=== PATIENT | male | born 1995 ===

== ENCOUNTER 2017-02-23 21:43 | Emergency (ER) | payer OTHER ==
--- NOTE | 2017-02-23 21:45 | ER Report ---
History and Physical Time Seen By MD: 21:44 HPI/ROS CHIEF COMPLAINT: Body fluid exposure HISTORY OF PRESENT ILLNESS: 21-year-old homosexual male presents to the ER concerned about exposure to HIV. He is a homosexual male who engaged in anal intercourse with HIV positive person. He is feeling regretful. He did not use any protection. He is concerned he may have contracted HIV. He would like post exposure prophylaxis. Allergies: Coded Allergies: No Known Drug Allergies (Unverified , 02/23/17) Home Meds Active Scripts Lamivudine/Zidovudine (COMBIVIR TABLET) 1 Each Tablet, 1 EACH PO BID for prevention of HIV conversion, #60 Prov:JANELLBEHZAD Reyes DO 02/23/17 Reviewed Nurses Notes: Yes Old Medical Records Reviewed: Yes Constitutional Vital Sign - Last 24 Hours 02/23/17 21:48 Temp 98.8 Pulse 109 Resp 18 B/P (MAP) 135/98 Pulse Ox 96 O2 Delivery Room Air Physical Exam General appearance: Alert no distress. Respiratory: Chest is non tender, lungs are clear to auscultation. Cardiac: Regular rate and rhythm Abdomen soft, nontender, bowel sounds intact DIFFERENTIAL DIAGNOSIS: After history and physical exam differential diagnosis was considered for body fluid exposure to HIV Medical Decision Making ED Course/Re-evaluation ED Course Patient was admitted to an examination room. H&P was done. The differential diagnoses was considered. Patient is asymptomatic. He will be covered with postexposure prophylaxis with Combivir Dillon. Prescription was provided. Patient advised to follow-up with primary care to assess his HIV status in 4 weeks. Decision to Disposition Date: Feb 23, 2017 Decision to Disposition Time: 22:21 Depart Departure Latest Vital Signs Vital Signs Date Time Temp Pulse Resp B/P (MAP) Pulse Ox O2 Delivery O2 Flow Rate FiO2 02/23/17 21:48 98.8 109 18 135/98 96 Room Air Impression: Primary Impression: Unprotected sexual intercourse Additional Impression: HIV exposure from body fluids Condition: Improved Disposition: HOME OR SELF-CARE Referrals: ANTHONY SARMIENTO MD New Scripts Lamivudine/Zidovudine (COMBIVIR TABLET) 1 Each Tablet 1 EACH PO BID for prevention of HIV conversion, #60 Prov: JANELLBEHZAD Reyes DO 02/23/17 Patient Instructions: HIV Transmission (ED) Additional Instructions: Follow-up with your primary care or the physician listed on your paperwork for follow-up within one week Problem Qualifiers BEHZAD MACIEL DO Feb 23, 2017 21:45
[2017-02-23 21:48] VITALS: BP 135/98
[2017-02-23] MEDS ORDERED: ZIDOVUDINE PO ONE (22:15)
[2017-02-23] MEDS ORDERED: LAMIVUDINE PO ONE (22:15)
[2017-02-23] MEDS ORDERED: LAMI1TAB PO (22:23)
[2017-02-27] MEDS ORDERED: TRUPT PO ×2 (16:25→16:32)
[2017-02-27] MEDS ORDERED: ESCI10TA8 PO ×2 (16:28→16:32)
== END 2017-02-23 22:30 | disposition home or self-care (01) ==
LOC: ER 21:59
DX: Z20.6 Contact with and (suspected) exposure to human immunodeficiency virus [HIV] (principal)
CPT/HCPCS: 99282

== ENCOUNTER → 2017-02-27 | Outpatient (CLI) | payer OTHER ==
[~2017-02-27] MED LIST: ESCI10TA8 PO; LAMI1TAB PO; TRUPT PO
== END ==
LOC: LAB 16:35
PROVIDERS: ATTEND Internal Medicine
DX: Z20.6 Contact with and (suspected) exposure to human immunodeficiency virus [HIV] (principal)
CPT/HCPCS: 36415; 86703

== ENCOUNTER → 2017-03-30 | Day surgery (SDC) | payer OTHER ==
[~2017-03-30] VITALS: Ht 167.6 cm; Wt 79.4 kg
[~2017-03-30] MED LIST changes: +APAP/HYDROCODONE 325/5 TAB PO PRN; +BUPIV/EPI 0.25% 1:200,000 50ML INFIL ONE; +DEXAMETHASONE SOD 4 MG/ML VIAL ONE; +HYDR-4309 PO; +IOPAMIDOL 76% 75 ML INFUS BTL 75 ML ONE; +KETOROLAC 30 MG/ML VIAL ONE; +LIDOCAINE 2% IV 100 MG/5ML SYR ONE; +MORPHINE 4 MG/ML SDV IVP ONE; +NS 0.9% 20 ML SDV 60 ML ONE; +NS(*) 0.9% 1000 ML BAG 1,000 ML IV ONE; +ONDANSETRON 4 MG/2 ML VIAL IVP ONE; +ONDANSETRON 4 MG/2 ML VIAL ONE; +PANTOPRAZOLE SOD 40 MG IV VIAL IVP ONE; +PIPERACILLIN/TAZO*3.375GM VIAL 3.375 GM in NS(*) 0.9% 100 ML ADDVANT BAG 100 ML IVPB ONE; +PROPOFOL EMUL(*) 10MG/ML 20 ML 20 ML ONE; +SUGAMMADEX SOD 200 MG/2 ML SDV ONE; +fentaNYL CITR 250 MCG/5 ML AMP ONE
--- NOTE | 2017-03-30 02:54 | ER Report ---
History and Physical Time Seen By MD: 02:54 Hx. of Stated Complaint: abdominal pain since 2200 03/29/2017 HPI/ROS CHIEF COMPLAINT: Abdominal pain HISTORY OF PRESENT ILLNESS: This is a 21-year-old male. He began having severe abdominal pain tonight at about 2200. Pain mainly in the right lower abdomen. Worsens with any movement. Described as severe. No fevers with this. He does have a history of ulcer disease in the past and was wondering if that might be the cause. He tried a Prilosec tablet that this did not help the pain. No diarrhea or blood in the stool. Denies any urinary problems. He is a little bit nauseated. Last food was some dumplings and ramirez at about 2200 and had some orange juice at about 2300. REVIEW OF SYSTEMS: Constitutional: No fever or chills. ENT: No sore throat. No congestion. Cardiovascular: No chest pain. Respiratory: No shortness of breath. Gastrointestinal: As above. Genitourinary: No dysuria or problems urinating. Musculoskeletal: No musculoskeletal pain. Skin: No rashes. Neurological: No headache. No numbness or weakness. Allergies: Coded Allergies: No Known Drug Allergies (Unverified , 02/23/17) Home Meds Active Scripts Escitalopram Oxalate (ESCITALOPRAM OXALATE) 10 Mg Tablet, 10 MG PO QDAY, #30 TAB 3 Refills Prov:ANTHONY SARMIENTO MD 02/27/17 Emtricitabine/Tenofovir (TRUVADA 200 MG-300 MG TABLET) 1 Each Tablet, 1 EACH PO QDAY, #30 TAB Prov:ANTHONY SARMIENTO MD 02/27/17 Reviewed Nurses Notes: Yes Social History of homosexual with unprotected anal intercourse with HIV positive partner, on prophylactic medication. Smoking Status: Current: Some Days Smoker Hx Alcohol Use: Yes (occ.) Constitutional Vital Sign - Last 24 Hours 03/30/17 03/30/17 03/30/17 03/30/17 02:30 02:33 02:43 02:55 Temp 97.6 Pulse 109 212 Resp 22 12 B/P (MAP) 134/94 (107) 134/94 128/92 (104) Pulse Ox 96 99 O2 Delivery Room Air 03/30/17 03/30/17 03/30/17 03/30/17 03:00 03:20 03:25 03:40 Pulse 230 Resp 46 B/P (MAP) 131/89 (103) 116/81 (93) 115/77 (90) Pulse Ox 100 03/30/17 03/30/17 03/30/17 03/30/17 04:00 04:20 04:25 04:25 Pulse 107 109 Resp 12 20 B/P (MAP) 109/92 (98) 117/85 (96) Pulse Ox 86 90 03/30/17 03/30/17 03/30/17 03/30/17 04:40 04:55 05:00 05:10 Pulse 110 117 Resp 26 16 B/P (MAP) 123/81 (95) ???/??? (1665) 119/78 (92) Pulse Ox 89 O2 Flow Rate 2.0 Physical Exam General Appearance: The patient is alert. Acute distress due to pain. Eyes: Pupils are equal, round. No pallor, injection or icterus. ENT: Mucous membranes are moist. Normal oral mucosa. Normal posterior oropharynx. Neck: Supple and non tender. Respiratory: Lungs are clear to auscultation. Cardiovascular: Regular rate and rhythm. No murmurs, gallops or rubs. Normal capillary refill. Gastrointestinal: Abdomen is soft, tender in the right lower quadrant. Nondistended. He has both guarding and rebound. Hypoactive bowel sounds. Neurological: Alert and oriented x3. Skin: Warm and dry. No rashes. DIFFERENTIAL DIAGNOSIS: After history and physical exam, differential diagnosis was considered for abdominal pain including but not limited to appendicitis, cholecystitis, gastritis and urinary tract infection. Medical Decision Making Data Points Result Diagram: 03/30/17 0250 03/30/17 0250 Laboratory Hematology Test 03/30/17 02:50 03/30/17 03:19 Red Blood Count 5.67 M/uL (4.00-5.60) Mean Corpuscular Volume 88.9 fL (80.0-96.0) Mean Corpuscular Hemoglobin 30.1 pg (26.0-33.0) Mean Corpuscular Hemoglobin Concent 33.9 g/dL (32.0-36.0) Red Cell Distribution Width 13.9 % (11.5-14.5) Mean Platelet Volume 9.0 fL (7.2-11.1) Neutrophils (%) (Auto) 73.3 % (39.4-72.5) Lymphocytes (%) (Auto) 18.8 % (17.6-49.6) Monocytes (%) (Auto) 6.9 % (4.1-12.4) Eosinophils (%) (Auto) 0.6 % (0.4-6.7) Basophils (%) (Auto) 0.4 % (0.3-1.4) Nucleated RBC Relative Count (auto) 0.1 /100WBC Neutrophils # (Auto) 10.5 K/uL (2.0-7.4) Lymphocytes # (Auto) 2.7 K/uL (1.3-3.6) Monocytes # (Auto) 1.0 K/uL (0.3-1.0) Eosinophils # (Auto) 0.1 K/uL (0.0-0.5) Basophils # (Auto) 0.1 K/uL (0.0-0.1) Nucleated RBC Absolute Count (auto) 0.02 K/uL Urine Color Yellow Urine Clarity Slightly-cloudy Urine pH 7.0 pH (4.8-9.5) Urine Specific [place] 1.017 Urine Protein Negative mg/dL (NEGATIVE) Urine Glucose (UA) Negative mg/dL (NEGATIVE) Urine Ketones Negative mg/dL (NEGATIVE) Urine Blood Negative (NEGATIVE) Urine Nitrite Negative (NEGATIVE) Urine Bilirubin Negative (NEGATIVE) Urine Urobilinogen 4.0 mg/dL (0.2-1.9) Urine Leukocyte Esterase Negative (NEGATIVE) Urine RBC 1 /HPF (0-2/HPF) Urine WBC 2 /HPF (0-5/HPF) Urine Squamous Epithelial Cells None /LPF (</=FEW) Urine Amorphous Crystals Moderate /HPF Urine Bacteria Negative /HPF (NONE-FEW) Urine Mucus None /HPF (NONE-FEW) Sodium Level 139 mmol/L (137-145) Potassium Level 3.8 mmol/L (3.5-5.0) Chloride Level 99 mmol/L (98-107) Carbon Dioxide Level 27 mmol/L (22-30) Blood Urea Nitrogen 13 mg/dl (9-21) Creatinine 0.90 mg/dl (0.66-1.25) Glomerular Filtration Rate Calc > 60.0 Random Glucose 93 mg/dl (75-110) Calcium Level 9.9 mg/dl (8.4-10.2) Total Bilirubin 0.7 mg/dl (0.2-1.3) Aspartate Amino Transf (AST/SGOT) 27 U/L (0-35) Alanine Aminotransferase (ALT/SGPT) 32 U/L (0-56) Alkaline Phosphatase 99 U/L (0-126) C-Reactive Protein 1.9 mg/dl (<1.0) Total Protein 8.8 gm/dl (6.3-8.2) Albumin 4.5 g/dl (3.5-5.0) Amylase Level 60 U/L (0-110) Lipase 48 U/L (23-300) Lactate 1.0 mmol/L (0.7-2.1) Chemistry Test 03/30/17 02:50 03/30/17 03:19 White Blood Count 14.3 k/uL (4.5-11.0) Red Blood Count 5.67 M/uL (4.00-5.60) Hemoglobin 17.1 g/dL (14.0-18.0) Hematocrit 50.4 % (42.0-52.0) Mean Corpuscular Volume 88.9 fL (80.0-96.0) Mean Corpuscular Hemoglobin 30.1 pg (26.0-33.0) Mean Corpuscular Hemoglobin Concent 33.9 g/dL (32.0-36.0) Red Cell Distribution Width 13.9 % (11.5-14.5) Platelet Count 222 K/uL (150-450) Mean Platelet Volume 9.0 fL (7.2-11.1) Neutrophils (%) (Auto) 73.3 % (39.4-72.5) Lymphocytes (%) (Auto) 18.8 % (17.6-49.6) Monocytes (%) (Auto) 6.9 % (4.1-12.4) Eosinophils (%) (Auto) 0.6 % (0.4-6.7) Basophils (%) (Auto) 0.4 % (0.3-1.4) Nucleated RBC Relative Count (auto) 0.1 /100WBC Neutrophils # (Auto) 10.5 K/uL (2.0-7.4) Lymphocytes # (Auto) 2.7 K/uL (1.3-3.6) Monocytes # (Auto) 1.0 K/uL (0.3-1.0) Eosinophils # (Auto) 0.1 K/uL (0.0-0.5) Basophils # (Auto) 0.1 K/uL (0.0-0.1) Nucleated RBC Absolute Count (auto) 0.02 K/uL Urine Color Yellow Urine Clarity Slightly-cloudy Urine pH 7.0 pH (4.8-9.5) Urine Specific [place] 1.017 Urine Protein Negative mg/dL (NEGATIVE) Urine Glucose (UA) Negative mg/dL (NEGATIVE) Urine Ketones Negative mg/dL (NEGATIVE) Urine Blood Negative (NEGATIVE) Urine Nitrite Negative (NEGATIVE) Urine Bilirubin Negative (NEGATIVE) Urine Urobilinogen 4.0 mg/dL (0.2-1.9) Urine Leukocyte Esterase Negative (NEGATIVE) Urine RBC 1 /HPF (0-2/HPF) Urine WBC 2 /HPF (0-5/HPF) Urine Squamous Epithelial Cells None /LPF (</=FEW) Urine Amorphous Crystals Moderate /HPF Urine Bacteria Negative /HPF (NONE-FEW) Urine Mucus None /HPF (NONE-FEW) Glomerular Filtration Rate Calc > 60.0 Calcium Level 9.9 mg/dl (8.4-10.2) Total Bilirubin 0.7 mg/dl (0.2-1.3) Aspartate Amino Transf (AST/SGOT) 27 U/L (0-35) Alanine Aminotransferase (ALT/SGPT) 32 U/L (0-56) Alkaline Phosphatase 99 U/L (0-126) C-Reactive Protein 1.9 mg/dl (<1.0) Total Protein 8.8 gm/dl (6.3-8.2) Albumin 4.5 g/dl (3.5-5.0) Amylase Level 60 U/L (0-110) Lipase 48 U/L (23-300) Lactate 1.0 mmol/L (0.7-2.1) Urinalysis Test 03/30/17 02:50 Urine Color Yellow Urine Clarity Slightly-cloudy Urine pH 7.0 pH (4.8-9.5) Urine Specific [place] 1.017 Urine Protein Negative mg/dL (NEGATIVE) Urine Glucose (UA) Negative mg/dL (NEGATIVE) Urine Ketones Negative mg/dL (NEGATIVE) Urine Blood Negative (NEGATIVE) Urine Nitrite Negative (NEGATIVE) Urine Bilirubin Negative (NEGATIVE) Urine Urobilinogen 4.0 mg/dL (0.2-1.9) Urine Leukocyte Esterase Negative (NEGATIVE) Urine RBC 1 /HPF (0-2/HPF) Urine WBC 2 /HPF (0-5/HPF) Urine Squamous Epithelial Cells None /LPF (</=FEW) Urine Amorphous Crystals Moderate /HPF Urine Bacteria Negative /HPF (NONE-FEW) Urine Mucus None /HPF (NONE-FEW) EKG/Imaging Imaging CT of the abdomen and pelvis with contrast: Indication: Right lower quadrant pain. Technique: Helical CT was performed through the abdomen and pelvis following IV contrast enhancement with 75 cc of Isovue-370. Multiplanar reconstructions are reviewed. One of the following dose optimization techniques was utilized in the performance of this exam: Automated exposure control; adjustment of the mA and/ or kV according to the patient's size; or use of an iterative reconstruction technique. Specific details can be referenced in the facility's radiology CT exam operational policy. Comparison: None. Lower lung rodney: There are minimal atelectatic opacities at the bases. No consolidation or pleural effusion is identified. Liver: Normal in size, shape, and density. There is uniform enhancement of the venous structures. Gallbladder/biliary tree: The gallbladder is normal size and homogeneous in density. The bile ducts are normal in caliber. Pancreas: Normal in size, shape, and density. Spleen: Normal in size, shape, and density. Adrenal glands: Within normal limits. Kidneys/urinary bladder: The kidneys are normal in size, shape, and density. There are no signs of urinary tract calculus or obstruction. The bladder appears homogeneous and unremarkable. Intestinal structures: The appendix is dilated, measuring up to 11 mm in diameter. The lumen is filled with fluid. The wall appears diffusely thickened. Minimal inflammatory changes are identified around the appendix. The findings are consistent with acute appendicitis. No circumscribed fluid collection is identified. The intestinal structures are otherwise unremarkable, as visualized. Pelvis: No evidence of fluid collection or soft tissue abnormality. Aorta and vascular structures: Within normal limits. Ascites or fluid collections: None seen. Skeletal structures: Well mineralized and intact. Impression: Findings consistent with acute appendicitis. A preliminary report was called to Dr. Lazar at [facility] [place] at 0420 hours. Report Dictated By: Miguel Scott MD at 03/30/2017 4:14 AM ED Course/Re-evaluation Clinical Indication for ER IV: Hydration, IV Access ED Course Patient had some improvement with Morphine 4mg IV and Zofran 4mg IV. CT scan shows acute appendicitis. Labs with elevated white count. Discussed findings with the patient. He is having some pain come back so gave another dose of Morphine 4mg IV. Called and spoke with Dr. Bill. Patient given Zosyn 3.375g IV and plan to go to the operating room for appendectomy. Decision to Disposition Date: Mar 30, 2017 Decision to Disposition Time: 04:49 Depart Departure Latest Vital Signs Vital Signs Date Time Temp Pulse Resp B/P (MAP) Pulse Ox O2 Delivery O2 Flow Rate FiO2 03/30/17 05:10 117 16 119/78 (92) 03/30/17 04:55 2.0 03/30/17 04:40 89 03/30/17 02:33 97.6 Room Air Impression: Primary Impression: Appendicitis Condition: Condition Unchanged Disposition: ADMIT FROM ER TO OR Problem Qualifiers Primary Impression: Appendicitis Appendicitis type: acute appendicitis Acute appendicitis type: with localized peritonitis Qualified Codes: K35.3 - Acute appendicitis with localized peritonitis BRIDGER LAZAR MD Mar 30, 2017 02:54
[2017-03-30 03:19] LABS: PLATELET COUNT, AUTOMATED 222 K/uL (150-450)
--- NOTE | 2017-03-30 04:28 | RADIOLOGY IMAGING REPORT ---
[place] [facility] [place] Landon Whitman : 1995 MR: [id number] V: [id number] EXAM DATE: ORDERING PHYSICIAN: BRIDGER LAZAR TECHNOLOGIST: [place] [facility] [place] Patient: Landon Whitman : 1995 Visit/Account:[id number] Date of Sevice: 03/30/2017 CT of the abdomen and pelvis with contrast: Indication: Right lower quadrant pain. Technique: Helical CT was performed through the abdomen and pelvis following IV contrast enhancement with 75 cc of Isovue-370. Multiplanar reconstructions are reviewed. One of the following dose optimization techniques was utilized in the performance of this exam: Autom ated exposure control; adjustment of the mA and/or kV according to the patient's size; or use of an i terative reconstruction technique. Specific details can be referenced in the facility's radiology C T exam operational policy. Comparison: None. Lower lung rodney: There are minimal atelectatic opacities at the bases. No consolidation or pleural effusion is identified. Liver: Normal in size, shape, and density. There is uniform enhancement of the venous structures. Gallbladder/biliary tree: The gallbladder is normal size and homogeneous in density. The bile ducts a re normal in caliber. Pancreas: Normal in size, shape, and density. Spleen: Normal in size, shape, and density. Adrenal glands: Within normal limits. Kidneys/urinary bladder: The kidneys are normal in size, shape, and density. There are no signs of ur inary tract calculus or obstruction. The bladder appears homogeneous and unremarkable. Intestinal structures: The appendix is dilated, measuring up to 11 mm in diameter. The lumen is fille d with fluid. The wall appears diffusely thickened. Minimal inflammatory changes are identified aroun d the appendix. The findings are consistent with acute appendicitis. No circumscribed fluid collectio n is identified. The intestinal structures are otherwise unremarkable, as visualized. Pelvis: No evidence of fluid collection or soft tissue abnormality. Aorta and vascular structures: Within normal limits. Ascites or fluid collections: None seen. Skeletal structures: Well mineralized and intact. Impression: Findings consistent with acute appendicitis. A preliminary report was called to Dr. Lazar at [facility] [place] at 0420 hours. Report Dictated By: Miguel Scott MD at 03/30/2017 4:14 AM Report E-Signed By: Miguel Scott MD at 03/30/2017 4:23 AM [id number]
[2017-03-30 05:20] VITALS: BP 116/85
--- NOTE | 2017-03-30 05:35 | Gen Surgery History & Physical ---
History of Present Illness Chief Complaint RLQ pain History of Present Illness This 21 year old male presents to [facility] ED with history of acute onset of abdominal pain that is now in RLQ. Some nausea, denies vomiting. Work up showed elevated WBC and CT scan confirmed appendicitis. He is now admitted for appendectomy. History Home Meds Active Scripts Escitalopram Oxalate (ESCITALOPRAM OXALATE) 10 Mg Tablet, 10 MG PO QDAY, #30 TAB 3 Refills Prov:ANTHONY SARMIENTO MD 02/27/17 Emtricitabine/Tenofovir (TRUVADA 200 MG-300 MG TABLET) 1 Each Tablet, 1 EACH PO QDAY, #30 TAB Prov:ANTHONY SARMIENTO MD 02/27/17 Allergies: Coded Allergies: No Known Drug Allergies (Unverified , 02/23/17) Patient History: Diabetes mellitus in maternal grandmother Review of Systems Gastrointestinal: Abdominal Pain Psychiatric: Depression Exam General Appearance: Alert, Awake, No Acute Distress Neuro: No Gross deficits Eyes: PERRLA ENT: Moist Mucous Membranes Neck: No Masses Cardiovascular: Normal Rhythm & Peripheral Pulses Respiratory: No Respiratory Distress, Clear to Auscultation GI: Other (soft, markedly tender in RLQ with guarding and rebound, BS present) Extremities: Soft and Non Tender Integumentary: Skin Intact without Lesion / Mass Psych: Alert & Oriented X3 Medical Decision Making Data Points Result Diagram: 03/30/17 0250 03/30/17 0250 Assessment and Plan Problems: (1) Appendicitis Status: Acute Assessment & Plan: I discussed with patient the diagnosis, treatment options, and possible risks and complications of laparoscopic appendectomy. He wishes to proceed with surgery, informed consent obtained. Zosyn 3.375 grams IV infusing. To OR when OR team is ready. Condition stable Time Spent: > 30 min Venous Thromboembolism Antithrombotics Is Pt On Any Antithrombotics?: No Prophylaxis Tx Contraindicated Pharmacological Contraindicati: Pt at Low Risk for VTE Problem Qualifiers (1) Appendicitis: Appendicitis type: acute appendicitis Acute appendicitis type: with localized peritonitis Qualified Codes: K35.3 - Acute appendicitis with localized peritonitis ELEANOR PEREZ MD Mar 30, 2017 05:35
--- NOTE | 2017-03-30 06:42 | Post Operative Progress Note ---
Post Operative Progress Note Date: Mar 30, 2017 Time: 06:40 Surgeon: Landy Horticulture Professor: MANDI Anesthesia: General Pre-Op Diagnosis: Acute appendicitis Post-Op Diagnosis: Acute suppurative appendicitis Findings: AAST Grade II appendicitis Procedure(s): Laparoscopic appendectomy Specimen Removed:(May be N/A): Appendix Complications: none Fluids: 800ml Estimated Blood Loss: < 2 ml Date OP Note Dictated: Mar 30, 2017 Time OP Note Dictated: 06:42 ELEANOR PEREZ MD Mar 30, 2017 06:42
--- NOTE | 2017-03-30 06:46 | Short(Outpt) Discharge Summary ---
Discharge Summary Reason for Hosp/Final Diag: (1) Appendicitis Status: Acute Hospital Course & Plan: I discussed with patient the diagnosis, treatment options, and possible risks and complications of laparoscopic appendectomy. He wishes to proceed with surgery, informed consent obtained. Zosyn 3.375 grams IV infusing. To OR when OR team is ready. Departure Discharge to: Home Discharge Instructions Home Meds Active Scripts Escitalopram Oxalate (ESCITALOPRAM OXALATE) 10 Mg Tablet, 10 MG PO QDAY, #30 TAB 3 Refills Prov:ANTHONY SARMIENTO MD 02/27/17 Emtricitabine/Tenofovir (TRUVADA 200 MG-300 MG TABLET) 1 Each Tablet, 1 EACH PO QDAY, #30 TAB Prov:ANTHONY SARMIENTO MD 02/27/17 Diet: Regular Activity: No Heavy Lifting Special Instructions: No heavy lifting for two weeks. Follow up in Dr. Irizarry's office in 7-10 days May shower Ice packs to incisions for the next 48 hours. Copies to: SD GUZMAN PA-C; SALIMA IRIZARRY MD Problem Qualifiers (1) Appendicitis: Appendicitis type: acute appendicitis Acute appendicitis type: with localized peritonitis Qualified Codes: K35.3 - Acute appendicitis with localized peritonitis ELEANOR PEREZ MD Mar 30, 2017 06:46
--- NOTE | 2017-03-30 13:33 | OPERATIVE REPORT 1 ---
EVENT DATE: March 30, 2017 SURGEON: Noah Bill MD ANESTHESIOLOGIST: Gary Matthews MD ANESTHESIA: General endotracheal anesthesia. CRANE ENGINEER: leather worker PREOPERATIVE DIAGNOSIS Acute appendicitis. POSTOPERATIVE DIAGNOSIS Acute suppurative appendicitis. PROCEDURE PERFORMED Laparoscopic appendectomy. PROCEDURE IN DETAIL Mr. Whitman was taken to the operating room and placed in the supine position. After induction of adequate general endotracheal anesthesia, a timeout was taken. The patient had received Zosyn 3.375 g IV prior to going to the OR. With the abdomen prepped and draped in the usual sterile fashion, attention was then turned to the umbilicus. An incision was made at the infraumbilical fold. Using blunt dissection, this was carried down to the fascia. The umbilicus was grasped with a penetrating towel clip and retracted anteriorly and superiorly. The fascia was then incised. The peritoneal cavity was entered under direct visualization. An 0 Vicryl [id number] suture was placed in the fascia. A 10/12 trocar was then introduced. A pneumoperitoneum was created. The laparoscope was then inserted and general exploration performed. This was remarkable for evidence of acute suppuration of the appendix. There were no other abnormalities. There was no significant intra-abdominal/pelvic fluid noted. There was no evidence of perforation. Two separate 5 mm ports were placed, one in the right upper quadrant and one in the left lower quadrant. The mesoappendix was then grasped. It was then divided with a Harmonic scalpel. The laparoscope was then introduced via the right upper quadrant port, and using the Endo JAYLON stapling device, the appendix was then stapled and divided at its base from the cecum. The appendix was then placed in a specimen bag and removed via the umbilical port site. The laparoscope was then reintroduced and adequate hemostasis confirmed. The 5 mm trocars were removed under direct visualization, and hemostasis was noted. The pneumoperitoneum was then evacuated. The fascia was closed with 0 Vicryl suture. The skin, subcutaneous tissue, and fascia were infiltrated with 0.25% Marcaine with epinephrine for postop pain control. The skin of all wounds was then closed with simple running 4-0 Monocryl and Dermabond. The final sponge, needle, and instrument counts were correct times two. The patient tolerated this well and was taken to the PACU in stable condition. He will be discharged home and followed as an outpatient. Wound care and aftercare instructions are provided. Discharge medication was [place] one to two q.4 hours p.r.n. pain, #20, no refills. TAMIA
== END ==
LOC: ER 02:53 → OR 05:15
PROVIDERS: ATTEND Surgery
DX: K35.3 Acute appendicitis with localized peritonitis (principal)
CPT/HCPCS: 44970; 74177; 81001; 82150; 83605; 83690; 85025; 86140; 99285; C9113; J1100; J1885; J2001; J2270; J2405; J2543; J2704; J3010; J7030; J7050; Q9967; 82040; 82247; 82310; 82374; 82435; 82565; 82947; 84075; 84132; 84155; 84295; 84450; 84460; 84520; 88304